=== PATIENT | male | born 1950 | race Caucasian/White ===

== ENCOUNTER → 2016-07-31 | Outpatient (REF) | payer MEDICARE ==
[~2016-07-31] MED LIST: ATEN25TA; PRIL20CA; XANA0.5T; ZOCO40TA; ZOLO100T
[2016-07-31 18:47] LABS: BASO % 0.5 % (0.0-1.0); EOS # 0.2 K/mm3 (0.0-0.50); EOS % 2.6 % (0.0-3.0); LARGE UNSTAINED CELL # 0.2 K/mm3 (0.0-0.4); LARGE UNSTAINED CELL % 1.9 % (0.0-4.0); LYMPH # 2.2 K/mm3 (1.5-4.5); LYMPH % 27.3 % (24.0-44.0); MEAN CORPUSCULAR HEMOGLOBIN 30.2 pg (27.0-33.0); MEAN CORPUSCULAR HGB CONC 32.4 g/dl (32.0-36.5); MEAN CORPUSCULAR VOLUME 93.1 fl (80.0-96.0); MONO # 0.5 K/mm3 (0.0-0.8); MONO % 6.3 % (0.0-5.0); NEUTROPHILS % 61.4 % (36.0-66.0); PLATELET COUNT, AUTOMATED 230 k/mm3 (150-450); RED CELL DISTRIBUTION WIDTH 12.8 % (11.5-14.5); WHITE BLOOD COUNT 8.2 K/mm3 (4.0-10.0)
[2016-07-31 20:31] LABS: ALBUMIN 3.4 GM/DL (3.2-5.2); ALBUMIN/GLOBULIN RATIO 0.94 (1.00-1.93); ALKALINE PHOSPHATASE 128 U/L (45-117); ALT/SGPT 25 U/L (12-78); ANION GAP 7 MEQ/L (8-16); AST/SGOT 21 U/L (15-37); BILIRUBIN,TOTAL 0.4 MG/DL (0.2-1.0); BLOOD UREA NITROGEN 9 MG/DL (7-18); CALCIUM LEVEL 8.5 MG/DL (8.8-10.2); CARBON DIOXIDE LEVEL 30 MEQ/L (21-32); CHLORIDE LEVEL 104 MEQ/L (98-107); CHOLESTEROL LEVEL 223 MG/DL (<200); CREATININE FOR GFR 0.99 MG/DL (0.70-1.30); GLOMERULAR FILTRATION RATE > 60.0 (>49); GLUCOSE, FASTING 109 MG/DL (80-110); POTASSIUM SERUM 4.8 MEQ/L (3.5-5.1); SODIUM LEVEL 141 MEQ/L (136-145); TRIGLYCERIDES LEVEL 196 MG/DL (<150)
== END ==
LOC: M SFHCCAPE 07:08
PROVIDERS: ATTEND Physician Assistant
DX: E78.2 Mixed hyperlipidemia (principal); I10 Essential (primary) hypertension; Z12.5 Encounter for screening for malignant neoplasm of prostate; Z79.82 Long term (current) use of aspirin; Z79.899 Other long term (current) drug therapy
CPT/HCPCS: 36415; 80053; 80061; 83036; 84443; 85025; G0103

== ENCOUNTER → 2016-08-09 | Outpatient (CLI) | payer MEDICARE ==
--- NOTE | 2016-08-09 10:26 | REP ---
HISTORY: Elevated liver function studies. The liver shows some enlargement and decreased echotexture consistent with fatty infiltration. The gallbladder is unremarkable. The gallbladder wall thickness is 1.0 mm, normal and the common bile duct measures 2.7 mm, normal. The pancreas is unremarkable. The spleen length is 12.5 cm which is within normal limits. The right kidney measures 10.9 x 5.5 x 5.9 cm without evidence of hydronephrosis. There is a cyst in the left kidney measuring 3.9 x 2.7 x 2.2 cm. This kidney measures 11.4 x 5.2 x 5.3 cm. The kidneys have normal echotexture. The aorta shows some plaque formation. IMPRESSION: Fatty infiltration of the liver. Left renal cyst measuring up to 3.9 cm. The remaining study is normal. Unreviewed
== END ==
LOC: M RAD 08:15
PROVIDERS: ATTEND Physician Assistant
DX: R74.8 Abnormal levels of other serum enzymes (principal)

== ENCOUNTER → 2016-08-21 | Outpatient (CLI) | payer MEDICARE ==
[~2016-08-21] MED LIST changes: +AMLO10TA2 PO; +ASPI81TA85 PO; +ATEN25TA PO; +CYCL5TA PO; +IRBE75TA5 PO; +LIPI10TA PO; +MOTR200T44 PO; +PRIL20CA9 PO; +TRAM1CAP15 PO; +XANA1TAB2 PO; +ZOLO100T PO
--- NOTE | 2016-08-21 11:40 | REP ---
TRANSRECTAL PROSTATE ULTRASOUND WITH ULTRASOUND GUIDANCE FOR PROSTATE BIOPSY: Real-time sonographic evaluation of the prostate performed utilizing transrectal probe. The size of the gland is 4.4 x 3.0 x 4.4 cm. Volume is 29.8 mL. Hypoechoic nodule on the right measures 13 x 12 mm and other measures 6 x 5 mm. Scattered echogenic calcifications are seen. Seminal vesicles are symmetrical. Ultrasound guidance was provided by Dr. Muse who performed ultrasound guided biopsy of the prostate. Signed by Wing Long MD 08/21/2016 08:07 P
== END | disposition home or self-care (01) ==
LOC: M SMT PRO 08:50
PROVIDERS: ATTEND Urology
DX: C61 Malignant neoplasm of prostate (principal)
CPT/HCPCS: 55700; 76872; 76942; G0416

== ENCOUNTER → 2016-08-29 | Outpatient (CLI) | payer MEDICARE ==
[2016-08-29 15:46] LABS: MEAN CORPUSCULAR HEMOGLOBIN 31.1 pg (27.0-33.0); MEAN CORPUSCULAR HGB CONC 33.6 g/dl (32.0-36.5); MEAN CORPUSCULAR VOLUME 92.8 fl (80.0-96.0); RED CELL DISTRIBUTION WIDTH 12.6 % (11.5-14.5); WHITE BLOOD COUNT 8.3 K/mm3 (4.0-10.0)
[2016-08-29 15:51] LABS: INR 1.12
[2016-08-29 16:24] LABS: ALBUMIN 2.8 GM/DL (3.2-5.2); ALBUMIN/GLOBULIN RATIO 0.72 (1.00-1.93); ALKALINE PHOSPHATASE 87 U/L (45-117); ALT/SGPT 20 U/L (12-78); ANION GAP 6 MEQ/L (8-16); AST/SGOT 24 U/L (15-37); BILIRUBIN,TOTAL 0.5 MG/DL (0.2-1.0); BLOOD UREA NITROGEN 12 MG/DL (7-18); CALCIUM LEVEL 8.4 MG/DL (8.8-10.2); CARBON DIOXIDE LEVEL 32 MEQ/L (21-32); CHLORIDE LEVEL 102 MEQ/L (98-107); CREATININE FOR GFR 0.93 MG/DL (0.70-1.30); GLOMERULAR FILTRATION RATE > 60.0 (>49); GLUCOSE, FASTING 119 MG/DL (80-110); POTASSIUM SERUM 4.6 MEQ/L (3.5-5.1); SODIUM LEVEL 140 MEQ/L (136-145); TOTAL PROTEIN 6.7 GM/DL (6.4-8.2)
--- NOTE | 2016-08-29 18:25 | REP ---
Chest x-ray: Two views: History: Prostate malignancy. Comparison study: 04/15/2014. Findings: The lungs are symmetrically aerated and free of infiltrate. Pleural angles are sharp. The aorta is calcific and a little tortuous as before. Heart is not enlarged. There are degenerative changes in the thoracic spine. No significant bony abnormality is seen. Impression: No active disease. Signed by Raghu Friedman MD 08/30/2016 05:18 P
--- NOTE | 2016-08-29 22:46 | ECGEPIP ---
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
== END ==
LOC: M LAB 15:08
PROVIDERS: ATTEND Urology
DX: Z01.818 Encounter for other preprocedural examination (principal); C61 Malignant neoplasm of prostate; Z79.01 Long term (current) use of anticoagulants
CPT/HCPCS: 36415; 71020; 80053; 81001; 85027; 85610; 85730; 93005; G0463

== ENCOUNTER → 2016-08-30 | Outpatient (REF) | payer MEDICARE | LOC: M SMT 15:08 | PROVIDERS: ATTEND Urology | DX: N39.0 Urinary tract infection, site not specified (principal) ==

== ENCOUNTER → 2016-10-10 | Outpatient (REF) | payer MEDICARE ==
[~2016-10-10] MED LIST changes: +CIPR500T89 PO; +COLA100C3 PO; +ELIQ5TAB PO; +OXYC1TAB23 PO; +SM 88TAB PO
[2016-10-10 17:53] LABS: INR 1.13
[2016-10-10 18:30] LABS: MEAN CORPUSCULAR HEMOGLOBIN 32.4 pg (27.0-33.0); MEAN CORPUSCULAR HGB CONC 35.2 g/dl (32.0-36.5); MEAN CORPUSCULAR VOLUME 92.1 fl (80.0-96.0); RED CELL DISTRIBUTION WIDTH 13.5 % (11.5-14.5); WHITE BLOOD COUNT 8.4 K/mm3 (4.0-10.0)
[2016-10-10 18:40] LABS: ANION GAP 11 MEQ/L (8-16); BLOOD UREA NITROGEN 12 MG/DL (7-18); CALCIUM LEVEL 8.6 MG/DL (8.8-10.2); CARBON DIOXIDE LEVEL 28 MEQ/L (21-32); CHLORIDE LEVEL 103 MEQ/L (98-107); CREATININE FOR GFR 1.18 MG/DL (0.70-1.30); GLOMERULAR FILTRATION RATE > 60.0 (>49); GLUCOSE, FASTING 103 MG/DL (80-110); POTASSIUM SERUM 3.8 MEQ/L (3.5-5.1); SODIUM LEVEL 142 MEQ/L (136-145)
== END ==
LOC: M LABSMT 07:32
PROVIDERS: ATTEND Urology
DX: Z01.818 Encounter for other preprocedural examination (principal); C61 Malignant neoplasm of prostate; Z79.01 Long term (current) use of anticoagulants; I10 Essential (primary) hypertension; E78.00 Pure hypercholesterolemia, unspecified; K21.9 Gastro-esophageal reflux disease without esophagitis; F41.9 Anxiety disorder, unspecified; F32.9 Major depressive disorder, single episode, unspecified; F43.12 Post-traumatic stress disorder, chronic; N39.0 Urinary tract infection, site not specified; E78.2 Mixed hyperlipidemia; Z79.899 Other long term (current) drug therapy

== ENCOUNTER 2016-10-26 11:25 | Inpatient (IN) | payer MEDICARE, BC ==
[~2016-10-26] VITALS: Ht 180.3 cm; Wt 105.2 kg
[~2016-10-26 11:25] MED LIST changes: -CIPR500T89 PO; -COLA100C3 PO; -OXYC1TAB23 PO; -SM 88TAB PO
[2016-10-26] MEDS ORDERED: LR 1,000 ML IV ONE (11:45)
[2016-10-26] MEDS ORDERED: LIDOCAINE 1% SDV INJ 30 ML VIAL As Ordered ONE (15:25)
[2016-10-26] MEDS ORDERED: BUPIVACAINE HCL 0.25% 30 ML VIAL As Ordered ONE (15:25)
[2016-10-26] MEDS ORDERED: ONDANSETRON 4MG/2ML VIAL (J2405) IV PRN ×2 (15:45→21:30)
[2016-10-26] MEDS ORDERED: MORPHINE 2 MG/ML 1ML SYRINGE IV PRN (15:45)
[2016-10-26] MEDS ORDERED: MIDAZOLAM INJ 2 MG/2 ML VIAL (J2250) As Ordered ONE (16:14)
[2016-10-26] MEDS ORDERED: fentaNYL 250 MCG/5 ML INJECTION (J3010) As Ordered ONE (16:14)
[2016-10-26] MEDS ORDERED: NEOSTIGMINE 1MG/ML 5 ML SYRINGE (J2710) As Ordered ONE (16:15)
[2016-10-26] MEDS ORDERED: GLYCOPYRROLATE INJ 0.2 MG/ML 2 ML VIAL As Ordered ONE (16:15)
[2016-10-26] MEDS ORDERED: PROPOFOL 200 MG/20 ML VIAL As Ordered ONE (16:15)
[2016-10-26] MEDS ORDERED: ROCURONIUM BROMIDE 50 MG/5 ML VIAL As Ordered ONE ×2 (16:15→16:46)
[2016-10-26] MEDS ORDERED: LIDOCAINE 2% INJ 100 MG/5 ML SDV (FOR ANES.) As Ordered ONE (16:15)
[2016-10-26] MEDS ORDERED: PHENYLephrine HCL 500 MCG/5 ML (100MCG/ML) SYRINGE (J2370) As Ordered ONE ×2 (16:15→18:03)
[2016-10-26] MEDS ORDERED: ePHEDrine SULFATE 25 MG/5 ML(5MG/ML) SYRINGE As Ordered ONE (16:15)
[2016-10-26] MEDS ORDERED: METOCLOPRAMIDE INJ 10MG/2ML VIAL (J2765) As Ordered ONE (16:15)
[2016-10-26] MEDS ORDERED: ONDANSETRON 4MG/2ML VIAL (J2405) As Ordered ONE (16:15)
[2016-10-26] MEDS ORDERED: ETOMIDATE INJ 20MG/10ML VIAL As Ordered ONE (16:19)
[2016-10-26] MEDS ORDERED: HYDROmorphone HCL 2 MG/ML 1ML VIAL (J1170) As Ordered ONE (17:00)
[2016-10-26] MEDS ORDERED: DESFLURANE 240 ML INHALANT As Ordered ONE (18:12)
--- NOTE | 2016-10-26 20:50 | ROOPDOC ---
[facility] Report Of Operation Report of Operation DATE OF PROCEDURE: 10/26/2016 PREPROCEDURE DIAGNOSIS: Prostate cancer. POSTPROCEDURE DIAGNOSIS: Prostate cancer. PROCEDURE: Robotic-assisted laparoscopic radical prostatectomy. SURGEON: Melita Arroyo MD PLAYER MANAGER: Lakshmi Yarbrough NP ANESTHESIA: General. OPERATIVE INDICATIONS: This is a 66-year-old male who was diagnosed with clinical stage T1c [place] 3+3 prostate cancer. After a discussion of the different options for treatment, he elected to undergo the above listed procedure. DESCRIPTION OF PROCEDURE: The patient was brought to the operating room where general anesthesia was induced. Prophylactic antibiotics were infused. He was then placed in the dorsal lithotomy position, and prepped and draped in the usual sterile fashion. Next, a Osborn catheter was inserted into the bladder, and the balloon was filled with 10 mL of sterile water. We then made a midline incision above the umbilicus for 12 mm port. A Veress needle was utilized to achieve pneumoperitoneum. Next, a 12 mm port was inserted through the incision and subsequently the camera was inserted. There were no injuries from the Veress needle or initial trocar placement. The remaining ports were placed in the usual fashion under direct vision in a W configuration. There were three 8 mm robotic ports, as well as another 12 mm assistant inventory manager port. Once all the ports were placed, the robot was docked. After the robot was docked, we then proceeded to release any adhesions to the sigmoid colon and the abdominal wall. Once that was done, the bladder was dropped and the fat overlying the prostate was cleared using electrocautery. The superficial dorsal vein was controlled with electrocautery. The endopelvic fascia was opened on both sides and the dorsal venous complex was cleared. Next, a #0 Vicryl [id number] stitch was placed around the dorsal venous complex. Once that was done, the bladder was opened. We then began dissecting the bladder neck away from the prostate. I continued to dissect the bladder away from the prostate and then the prostate was lifted up. Both vasa differentia were identified in the midline. They were both carefully dissected and then ligated with Weck clips and then transected. Both seminal vesicles were then also dissected until the entire seminal vesicle on each side was lifted up. At this point, bilateral prostatic pedicles were carefully ligated using a Harmonic scalpel. Of note, I did not perform a nerve sparing procedure for this patient as he indicated preop that preserving erections was not a priority for him. Bilateral pedicles were carried towards the apex. After taking care of the pedicles and mobilizing the rectum off the prostate below, the prostate was only connected by the urethra. At this point, the dorsal vein was transected with electrocautery. The urethra was then opened and the catheter was withdrawn and the posterior urethra was transected, thus freeing the prostate. At this point, we checked for hemostasis and it did appear very good. Once hemostasis was confirmed, I then moved on to the vesicourethral anastomosis. This was performed with a Quill stitch in a running fashion. Once this was done, the final #20-Yoruba Osborn catheter was placed. Once the final Osborn was placed, the balloon was filled with 15 mL of sterile water. Upon completion of the vesicourethral anastomosis, it was tested by filling the bladder with 120 mL of sterile water. There did appear to be a small leak in the posterior aspect of the vesicourethral anastomosis. Given the location of the leak, it was not possible to access it and close it. At this point, the prostate and seminal vesicles were placed in an Endo Catch bag for future retrieval. The robot was then undocked. A David fascial closure device was utilized to place a #0 Vicryl suture through the fascia of the 12 mm assistant inventory manager port. At this point, a Surjit- Warren (ALBERTO) drain was brought in through the left robotic port skin site and the drain was positioned anterior to the bladder. The drain was secured to the skin with #3-0 Ethilon suture. Next, all the remaining ports were removed and there did not appear to be any bleeding from any of the port sites. The prostate was then extracted from the 12 mm camera port site after the skin and fascia were extended. The fascia in this area was then closed with a running #0 Vicryl stitch. The previously placed #0 Vicryl free ties through the assistant inventory manager port were then tied down and all incisions were irrigated. Lastly, all of the incisions were closed with running subcuticular #4-0 Monocryl sutures. Local anesthesia was applied. Dermabond was then applied to the incisions. This marked the conclusion of the procedure. The patient was then taken out of the dorsal lithotomy position, awakened from anesthesia and transported to the recovery room in stable condition. ESTIMATED BLOOD LOSS: 75 mL. COMPLICATIONS: None. SPECIMENS: Prostate. PLAN: The patient will be admitted to the hospital postoperatively, and he will likely be discharged home within the next 1-2 days. His catheter will be kept in place for at least 10 days and depending on ALBERTO drain output, he might need to have a cystogram prior to removal of the catheter. MELITA ARROYO MD October 26, 2016 20:50
[2016-10-26 21:00] LABS: MEAN CORPUSCULAR HEMOGLOBIN 30.9 pg (27.0-33.0); MEAN CORPUSCULAR HGB CONC 33.8 g/dl (32.0-36.5); MEAN CORPUSCULAR VOLUME 91.3 fl (80.0-96.0); RED CELL DISTRIBUTION WIDTH 14.1 % (11.5-14.5); WHITE BLOOD COUNT 9.6 K/mm3 (4.0-10.0)
[2016-10-26 21:21] LABS: ANION GAP 5 MEQ/L (8-16); BLOOD UREA NITROGEN 15 MG/DL (7-18); CARBON DIOXIDE LEVEL 29 MEQ/L (21-32); CHLORIDE LEVEL 107 MEQ/L (98-107); CREATININE FOR GFR 1.18 MG/DL (0.70-1.30); GLOMERULAR FILTRATION RATE > 60.0 (>49); GLUCOSE, FASTING 121 MG/DL (80-110); POTASSIUM SERUM 4.4 MEQ/L (3.5-5.1); SODIUM LEVEL 141 MEQ/L (136-145)
[2016-10-26] MEDS ORDERED: LR 1,000 ML IV SCH (21:30)
[2016-10-26] MEDS: PERCOCET 5MG/325MG TAB PO PRN (22:10)
[2016-10-26] MEDS: fentaNYL 100 MCG/2 ML INJECTION (J3010) IV PRN ×2 (22:11→22:24)
[2016-10-26 22:45] VITALS: BP 95/58
[2016-10-26] MEDS: ceFAZolin SOD 1 GM in D5W MINI-BAG PLUS 50 ML IV SCH (23:14)
[2016-10-26] MEDS: HEPARIN SOD (PORCINE) 5000 UNITS/ML VIAL SC SCH (23:14)
[2016-10-26 23:15] VITALS: BP 95/63
[2016-10-26] MEDS: DOCUSATE SODIUM 100 MG CAP PO SCH (23:16)
[2016-10-26] MEDS: NS 1,000 ML IV SCH ×2 (23:17→23:31)
[2016-10-27] VITALS (7 sets, daily range): BP systolic 94–124; BP diastolic 60–76
[2016-10-27] MEDS: PERCOCET 5MG/325MG TAB PO PRN ×4 (03:27→20:43)
[2016-10-27] MEDS: HEPARIN SOD (PORCINE) 5000 UNITS/ML VIAL SC SCH ×3 (05:36→23:11)
[2016-10-27 06:20] LABS: MEAN CORPUSCULAR HEMOGLOBIN 32.3 pg (27.0-33.0); MEAN CORPUSCULAR HGB CONC 34.8 g/dl (32.0-36.5); MEAN CORPUSCULAR VOLUME 92.9 fl (80.0-96.0); WHITE BLOOD COUNT 10.1 K/mm3 (4.0-10.0)
[2016-10-27 06:33] LABS: ANION GAP 6 MEQ/L (8-16); BLOOD UREA NITROGEN 17 MG/DL (7-18); CALCIUM LEVEL 7.9 MG/DL (8.8-10.2); CARBON DIOXIDE LEVEL 29 MEQ/L (21-32); CHLORIDE LEVEL 104 MEQ/L (98-107); CREATININE FOR GFR 1.05 MG/DL (0.70-1.30); GLOMERULAR FILTRATION RATE > 60.0 (>49); GLUCOSE, FASTING 110 MG/DL (80-110); POTASSIUM SERUM 4.6 MEQ/L (3.5-5.1); SODIUM LEVEL 139 MEQ/L (136-145)
[2016-10-27] MEDS: ATENOLOL 25 MG TAB PO SCH (08:25)
[2016-10-27] MEDS: SERTRALINE 100 MG TAB PO SCH (08:25)
[2016-10-27] MEDS: NS 1,000 ML IV SCH (08:25)
[2016-10-27] MEDS: ceFAZolin SOD 1 GM in D5W MINI-BAG PLUS 50 ML IV SCH (08:25)
[2016-10-27] MEDS: ATORVASTATIN 20 MG TAB PO SCH (08:25)
[2016-10-27] MEDS: amLODIPine 10 MG TAB PO SCH (08:26)
[2016-10-27] MEDS: DOCUSATE SODIUM 100 MG CAP PO SCH ×2 (08:26→20:42)
[2016-10-27] MEDS: IRBESARTAN 75MG TABLET PO SCH (08:27)
[2016-10-27] MEDS: OMEPRAZOLE 20 MG CAP PO SCH (08:27)
--- NOTE | 2016-10-27 10:50 | IPNPDOC ---
Assessment/Plan Date Seen The patient was seen on 10/27/16. Patient Summary 66 y/o M POD1 s/p robotic-assisted laparoscopic radical prostatectomy. He is doing well. Pain is well-controlled. Labs this morning look good. UOP has been good w/ minimal drain output. Plan/VTE VTE Prophylaxis Ordered?: Yes VTE Exclusion Mechanical Proph: N/A:VTE Prophy Ordered VTE Exclusion Pharmacological: N/A:VTE Prophy Ordered Plan/Urinary Catheter Urinary Catheter: Other Catheter: (catheter will need to stay in for 10 days given the vesicourethral anastomosis performed) Plan - d/c IVF - percocet prn pain w/ morphine for breakthrough - strict I/Os - SCDs, SQH - ambulate - incentive spirometry - advance diet as tolerated - plan discharge home either later today or tomorrow w/ catheter and ALBERTO drain in place Subjective Review oF Systems Chief Complaint The patient is a 66-year-old male admitted with a reason for visit of Prostate Cancer. Events since Last Encounter No acute events o/n. Good pain control. No n/v. Ambulating well. No flatus yet. No f/c/ns. Objective Physical Examination General Exam: Alert, Cooperative, No Acute Distress ABDOMEN EXAM: Soft, Hepatospenomegaly, Other (incisions clean/dry/intact; ALBERTO drain w/ no fluid in it), No: Tenderness Skin Exam: Nl turgor and temperature Neuro Exam: Normal Speech Psych Exam: Mental status NL, Mood NL Other physical findings catheter draining light pink urine Vital Signs/I&O Vital Signs Date Time Temp Pulse Resp B/P (MAP) Pulse Ox O2 Delivery O2 Flow Rate FiO2 10/27/16 08:27 123/76 10/27/16 08:26 96 10/27/16 08:26 18 10/27/16 06:00 98.3 95 Nasal Cannula 4.0 I&O- Last 24 Hours up to 6 AM 10/27/16 06:00 Intake Total 4000 ml Output Total 600 ml Balance 3400 ml Laboratory Data Labs 24H Laboratory Tests 2 10/26/16 20:52: Anion Gap 5L, Glomerular Filtration Rate > 60.0, Blood Urea Nitrogen 15, Creatinine 1.18, Sodium Level 141, Potassium Level 4.4, Chloride Level 107, Carbon Dioxide Level 29, Calcium Level 8.0L 10/27/16 06:04: Anion Gap 6L, Glomerular Filtration Rate > 60.0, Blood Urea Nitrogen 17, Creatinine 1.05, Sodium Level 139, Potassium Level 4.6, Chloride Level 104, Carbon Dioxide Level 29, Calcium Level 7.9L CBC/BMP Laboratory Tests 10/26/16 20:52 Red Blood Count 3.99 L, Mean Corpuscular Volume 91.3, Mean Corpuscular Hemoglobin 30.9, Mean Corpuscular Hemoglobin Concent 33.8, Red Cell Distribution Width 14.1, Calcium Level 8.0 L 10/27/16 06:04 Red Blood Count 3.80 L, Mean Corpuscular Volume 92.9, Mean Corpuscular Hemoglobin 32.3, Mean Corpuscular Hemoglobin Concent 34.8, Red Cell Distribution Width 14.0, Calcium Level 7.9 L MELITA ARROYO MD October 27, 2016 10:50
[2016-10-27] MEDS ORDERED: MORPHINE 2 MG/ML 1ML SYRINGE IV PRN (11:00)
[2016-10-27] MEDS ORDERED: PERCOCET 5MG/325MG TAB PO PRN (11:00)
[2016-10-27] MEDS: ASPIRIN 81 MG ENTERIC TAB PO SCH (12:00)
[2016-10-27] MEDS ORDERED: OXYC1TAB23 PO (15:13)
[2016-10-27] MEDS ORDERED: SM 88TAB PO (15:13)
[2016-10-27] MEDS ORDERED: PERCOCET 5MG/325MG TAB PO SCH (22:20)
[2016-10-28] MEDS: PERCOCET 5MG/325MG TAB PO PRN ×2 (04:08→09:17)
[2016-10-28 06:00] VITALS: BP 131/82
[2016-10-28 06:27] LABS: MEAN CORPUSCULAR HEMOGLOBIN 32.1 pg (27.0-33.0); MEAN CORPUSCULAR HGB CONC 34.3 g/dl (32.0-36.5); MEAN CORPUSCULAR VOLUME 93.7 fl (80.0-96.0); WHITE BLOOD COUNT 9.1 K/mm3 (4.0-10.0)
[2016-10-28 06:36] LABS: ANION GAP 5 MEQ/L (8-16); BLOOD UREA NITROGEN 15 MG/DL (7-18); CALCIUM LEVEL 8.3 MG/DL (8.8-10.2); CARBON DIOXIDE LEVEL 30 MEQ/L (21-32); CHLORIDE LEVEL 103 MEQ/L (98-107); GLOMERULAR FILTRATION RATE > 60.0 (>49); GLUCOSE, FASTING 117 MG/DL (80-110); POTASSIUM SERUM 3.9 MEQ/L (3.5-5.1); SODIUM LEVEL 138 MEQ/L (136-145)
[2016-10-28] MEDS: HEPARIN SOD (PORCINE) 5000 UNITS/ML VIAL SC SCH ×3 (06:39→20:53)
[2016-10-28] MEDS: ATORVASTATIN 20 MG TAB PO SCH (08:50)
[2016-10-28] MEDS: SERTRALINE 100 MG TAB PO SCH (08:50)
[2016-10-28] MEDS: amLODIPine 10 MG TAB PO SCH (08:50)
[2016-10-28] MEDS: IRBESARTAN 75MG TABLET PO SCH (08:50)
[2016-10-28] MEDS: ATENOLOL 25 MG TAB PO SCH (08:51)
[2016-10-28] MEDS: ASPIRIN 81 MG ENTERIC TAB PO SCH (08:51)
[2016-10-28] MEDS: DOCUSATE SODIUM 100 MG CAP PO SCH ×2 (08:51→20:53)
[2016-10-28] MEDS: OMEPRAZOLE 20 MG CAP PO SCH (08:51)
[2016-10-28] MEDS ORDERED: METOCLOPRAMIDE 10 MG TAB PO ONE (09:15)
--- NOTE | 2016-10-28 11:58 | IPNPDOC ---
Assessment/Plan Date Seen The patient was seen on 10/28/16. Plan/VTE VTE Prophylaxis Ordered?: Yes VTE Exclusion Mechanical Proph: N/A:VTE Prophy Ordered VTE Exclusion Pharmacological: N/A:VTE Prophy Ordered Plan/Urinary Catheter Urinary Catheter: Other Catheter: (catheter will need to stay in for 10 days given the vesicourethral anastomosis performed) Subjective Review oF Systems Chief Complaint The patient is a 66-year-old male admitted with a reason for visit of Prostate Cancer, s/p RALP (10/26/16). Poor po. No flatus/bm. Ambulate. No nausea/vomit. Uncomfortable. 92, 18, 131/82, 98.1f. Abdo: Distended, firm. No bs. Wound clean. Osborn 400cc/4hr. ALBERTO drops/4hr. (10/28/16) Hg 12.3, wbc 9.1, Cr 1.1. A: Above; ileus? P: Ambulate. Reglan. No narcotics. CT w/o and w/ IV abdo/pelvis w/ po. +/- General Surgery/GI consultation. Objective Physical Examination General Exam: Alert, Cooperative, No Acute Distress ABDOMEN EXAM: Soft, Hepatospenomegaly, Other (incisions clean/dry/intact; ALBERTO drain w/ no fluid in it), No: Tenderness Skin Exam: Nl turgor and temperature Neuro Exam: Normal Speech Psych Exam: Mental status NL, Mood NL Vital Signs/I&O Vital Signs Date Time Temp Pulse Resp B/P (MAP) Pulse Ox O2 Delivery O2 Flow Rate FiO2 10/28/16 09:47 16 10/28/16 08:51 82 131/82 10/28/16 06:00 98.1 94 Room Air 10/27/16 06:00 4.0 I&O- Last 24 Hours up to 6 AM 10/28/16 05:59 Intake Total 5050 ml Output Total 1765 ml Balance 3285 ml Laboratory Data Labs 24H Laboratory Tests 2 10/28/16 06:07: Anion Gap 5L, Glomerular Filtration Rate > 60.0, Blood Urea Nitrogen 15, Creatinine 1.10, Sodium Level 138, Potassium Level 3.9, Chloride Level 103, Carbon Dioxide Level 30, Calcium Level 8.3L CBC/BMP Laboratory Tests 10/28/16 06:07 Red Blood Count 3.82 L, Mean Corpuscular Volume 93.7, Mean Corpuscular Hemoglobin 32.1, Mean Corpuscular Hemoglobin Concent 34.3, Red Cell Distribution Width 14.0, Calcium Level 8.3 L YOMI SARABIA MD October 28, 2016 11:58
[2016-10-28] MEDS ORDERED: GASTROGRAFIN SOLUTION 30ML PO ONE (12:30)
[2016-10-28] MEDS ORDERED: GASTROGRAFIN SOLUTION 30ML (Q9963) PO ONE (13:00)
[2016-10-28] MEDS ORDERED: ISOVUE-370 76% 100ML VIAL (Q9967) As Ordered ONE (13:54)
[2016-10-28 14:00] VITALS: BP 178/94
[2016-10-28] MEDS: ALVIMOPAN 12 MG CAPSULE (ENTEREG) PO SCH (20:53)
[2016-10-28] MEDS: ACETAMINOPHEN TAB 650MG DOSE (2X325MG) PO PRN (20:53)
[2016-10-28 22:00] VITALS: BP 152/84
[2016-10-29] MEDS: HEPARIN SOD (PORCINE) 5000 UNITS/ML VIAL SC SCH (05:08)
[2016-10-29] MEDS: ACETAMINOPHEN TAB 650MG DOSE (2X325MG) PO PRN (05:08)
[2016-10-29 06:00] VITALS: BP 169/71
[2016-10-29 06:42] LABS: MEAN CORPUSCULAR HEMOGLOBIN 32.5 pg (27.0-33.0); MEAN CORPUSCULAR HGB CONC 35.3 g/dl (32.0-36.5); RED CELL DISTRIBUTION WIDTH 13.9 % (11.5-14.5); WHITE BLOOD COUNT 10.8 K/mm3 (4.0-10.0)
[2016-10-29 06:57] LABS: ANION GAP 7 MEQ/L (8-16); BLOOD UREA NITROGEN 10 MG/DL (7-18); CALCIUM LEVEL 8.5 MG/DL (8.8-10.2); CARBON DIOXIDE LEVEL 28 MEQ/L (21-32); CHLORIDE LEVEL 101 MEQ/L (98-107); CREATININE FOR GFR 0.94 MG/DL (0.70-1.30); GLOMERULAR FILTRATION RATE > 60.0 (>49); GLUCOSE, FASTING 119 MG/DL (80-110); POTASSIUM SERUM 3.9 MEQ/L (3.5-5.1); SODIUM LEVEL 136 MEQ/L (136-145)
--- NOTE | 2016-10-29 07:40 | REP ---
CT ABDOMEN AND PELVIS WITH CONTRAST: TECHNIQUE: Axial contrast enhanced images from the lung bases to the pubic symphysis using 100 mL Isovue 370 intravenous contrast material with multiplanar reformations. In the visualized lung bases there is mild patchy atelectasis or infiltrate in the right lower lobe. Minimal atelectasis of infiltrate is seen in the left lower lobe. Patient has had recent prostatectomy. A drain is seen in the pelvis. Tiny amount of free air is seen in the pelvis. There is ill-defined edema in the deep soft tissues of the pelvis above the bladder, but no fluid collection is seen. There is a Osborn catheter in the bladder. The liver, spleen, adrenals, and pancreas are unremarkable. There is a cyst in the lower pole of the left kidney. There is no hydronephrosis. There are atherosclerotic calcifications of the abdominal aorta without aneurysm. There is no free fluid. The appendix is normal. There is mild distension of the right colon with air and fecal material. There is no evidence of small bowel obstruction. IMPRESSION: Surgical drain in the pelvis status post prostatectomy. Osborn catheter. Soft tissue edema above the bladder, but no free fluid or fluid collection. No evidence of small bowel obstruction. Mild distension of the right side of the colon with air and fecal material. Mild atelectasis or infiltrate in the right lower lung. Minimal atelectasis or infiltrate left lower lung. Tiny amount of post surgical free air seen in the pelvis. Signed by Wing Long MD 10/29/2016 12:18 P
--- NOTE | 2016-10-29 08:19 | IPNPDOC ---
Assessment/Plan Date Seen The patient was seen on 10/29/16. Patient Summary This is a 66 y/o M POD3 s/p RALP. A CT A/P was performed yesterday given firm abdomen on exam and no flatus at the time. I reviewed the CT and it is consistent w/ postop changes. The patient had an ileus, which has now resolved. He feels well and wants to go home. Plan/VTE VTE Prophylaxis Ordered?: Yes VTE Exclusion Mechanical Proph: N/A:VTE Prophy Ordered VTE Exclusion Pharmacological: N/A:VTE Prophy Ordered Plan/Urinary Catheter Urinary Catheter: Other Catheter: (catheter will need to stay in for 10 days given the vesicourethral anastomosis performed) Plan - discharge home w/ catheter and ALBERTO drain in place - patient understands to try to minimize narcotics, ambulate, and use stool softeners at home - he will f/u in 3 days for pathology results and ALBERTO removal Subjective Review oF Systems Chief Complaint The patient is a 66-year-old male admitted with a reason for visit of Prostate Cancer. Events since Last Encounter No acute events o/n. Notes incisional pain. No n/v. Passing flatus. Had a small bm. No chest pain or SOB. No f/c/ns. Objective Physical Examination General Exam: Alert, Cooperative, No Acute Distress ABDOMEN EXAM: Soft, Other (incisions clean/dry/intact; ALBERTO draining serosanguinous fluid), No: Tenderness Skin Exam: Nl turgor and temperature Neuro Exam: Normal Speech Psych Exam: Mental status NL, Mood NL Other physical findings catheter draining clear urine Vital Signs/I&O Vital Signs Date Time Temp Pulse Resp B/P (MAP) Pulse Ox O2 Delivery O2 Flow Rate FiO2 10/29/16 06:00 98.6 103 18 169/71 (103) 94 Room Air 10/27/16 06:00 4.0 I&O- Last 24 Hours up to 6 AM 10/29/16 06:00 Intake Total 2280 ml Output Total 2000 ml Balance 280 ml Laboratory Data Labs 24H Laboratory Tests 2 10/29/16 06:18: Anion Gap 7L, Glomerular Filtration Rate > 60.0, Blood Urea Nitrogen 10, Creatinine 0.94, Sodium Level 136, Potassium Level 3.9, Chloride Level 101, Carbon Dioxide Level 28, Calcium Level 8.5L CBC/BMP Laboratory Tests 10/29/16 06:18 Red Blood Count 3.76 L, Mean Corpuscular Volume 92.0, Mean Corpuscular Hemoglobin 32.5, Mean Corpuscular Hemoglobin Concent 35.3, Red Cell Distribution Width 13.9, Calcium Level 8.5 L MELITA ARROYO MD October 29, 2016 08:19
[2016-10-29] MEDS: IRBESARTAN 75MG TABLET PO SCH (08:40)
[2016-10-29] MEDS: ALVIMOPAN 12 MG CAPSULE (ENTEREG) PO SCH (08:41)
[2016-10-29] MEDS: OMEPRAZOLE 20 MG CAP PO SCH (08:41)
[2016-10-29] MEDS: DOCUSATE SODIUM 100 MG CAP PO SCH (08:41)
[2016-10-29] MEDS: ATORVASTATIN 20 MG TAB PO SCH (08:41)
[2016-10-29] MEDS: ATENOLOL 25 MG TAB PO SCH (08:41)
[2016-10-29] MEDS: SERTRALINE 100 MG TAB PO SCH (08:41)
[2016-10-29 08:42] VITALS: BP 169/71
[2016-10-29] MEDS: amLODIPine 10 MG TAB PO SCH (08:42)
[2016-10-29] MEDS: ASPIRIN 81 MG ENTERIC TAB PO SCH (08:42)
[2016-10-29] MEDS ORDERED: COLA100C3 PO (08:55)
[2016-10-29] MEDS ORDERED: ASPI81TA85 PO (08:55)
[2016-10-29] MEDS ORDERED: CIPR500T89 PO (09:02)
--- NOTE | 2016-10-29 17:09 | DSES ---
DATE OF ADMISSION: 10/26/2016 DATE OF DISCHARGE: 10/29/2016 ADMISSION DIAGNOSIS: Prostate cancer. DISCHARGE DIAGNOSIS: Prostate cancer. ADMITTING PHYSICIAN: Main Muse MD. DISCHARGE PHYSICIAN: Main Muse MD. PROCEDURE PERFORMED: Robotic assisted laparoscopic radical prostatectomy on 10/26/2016. HISTORY OF PRESENT ILLNESS: 66-year-old male who was admitted to the hospital after undergoing above mentioned procedure on 10/26/2016. HOSPITALIZATION COURSE: The patient was admitted to the hospital on 10/26/2016. His postoperative course was complicated only by a postoperative ileus. On postoperative day two, his abdomen was concerned to be somewhat firm, and therefore a CAT scan of the abdomen and pelvis was performed. It was notable for postoperative changes and mild dilatation of the colon. General surgery was consulted for recommendations and they recommended starting him on Entereg. By postoperative day three, the patient had return of bowel function and was passing gas and also had a small bowel movement. He only had mild incisional pain. He was tolerating a regular diet and was ambulating well. His labs during his hospitalization course were unremarkable. He had excellent urine output. The patient was discharged on postoperative day three with a catheter in and ALBERTO drain in place. The plan is for him to follow up in the clinic in a few days to discuss his pathology results as well as the remove the ALBERTO drain. His catheter will need to stay in for a total of 10 days, and therefore that will be removed next week. BARRY
== END 2016-10-29 10:10 | disposition home or self-care (01) | DRG 707 ==
LOC: M OR 11:25 → EDSTATUS 13:00 → M MS5PR 22:57
PROVIDERS: ADMIT Urology; ATTEND Urology
PROC: 8E0W4CZ Robotic Assisted Procedure of Trunk Region, Percutaneous Endoscopic Approach (ICD-10-PCS; 2016-10-26)
PROC: 0VT04ZZ Resection of Prostate, Percutaneous Endoscopic Approach (ICD-10-PCS; principal; 2016-10-26 13:00)
DX: C61 Malignant neoplasm of prostate (principal); K56.7 Ileus, unspecified; I10 Essential (primary) hypertension; E78.00 Pure hypercholesterolemia, unspecified; F41.9 Anxiety disorder, unspecified; F32.9 Major depressive disorder, single episode, unspecified; K21.9 Gastro-esophageal reflux disease without esophagitis; F17.210 Nicotine dependence, cigarettes, uncomplicated; I48.91 Unspecified atrial fibrillation; Z79.899 Other long term (current) drug therapy; Z79.01 Long term (current) use of anticoagulants; Z82.3 Family history of stroke

== ENCOUNTER → 2016-11-26 | Outpatient (REF) | payer MEDICARE, BC ==
[~2016-11-26] MED LIST changes: +CIPR-249 PO; +COLA100C5 PO; -CYCL5TA PO; +CYCL5TAB PO; +OXYC1TAB23 PO; +SM 88TAB PO
== END ==
LOC: M LABDRWCV 16:44
PROVIDERS: ATTEND Urology
DX: C61 Malignant neoplasm of prostate (principal)

== ENCOUNTER → 2016-11-29 | Outpatient (REF) | payer MEDICARE ==
[~2016-11-29] MED LIST changes: -CIPR-249 PO; +CIPR500T89 PO; +COLA100C3 PO; -COLA100C5 PO; +CYCL5TA PO; -CYCL5TAB PO
== END ==
LOC: M SMT 13:18
PROVIDERS: ATTEND Urology
DX: R30.0 Dysuria (principal)

== ENCOUNTER → 2016-12-20 | Outpatient (REF) | payer MEDICARE, BC ==
[~2016-12-20] MED LIST changes: +CIPR-249 PO; -CIPR500T89 PO; -COLA100C3 PO; +COLA100C5 PO; -CYCL5TA PO; +CYCL5TAB PO
== END ==
LOC: M LABSMT 11:20
PROVIDERS: ATTEND Urology
DX: N39.0 Urinary tract infection, site not specified (principal)

== ENCOUNTER → 2017-01-10 | Outpatient (REF) | payer MEDICARE, BC | LOC: M SMT 13:12 | PROVIDERS: ATTEND Urology | DX: N39.0 Urinary tract infection, site not specified (principal) ==

== ENCOUNTER → 2017-01-15 | Outpatient (REF) | payer MEDICARE, BC | LOC: M LAB REF 16:40 | PROVIDERS: ATTEND Urology | DX: E29.1 Testicular hypofunction (principal) ==

== ENCOUNTER → 2017-01-15 | Outpatient (REF) | payer MEDICARE, BC | LOC: M LABSMT 07:29 | PROVIDERS: ATTEND Urology | DX: E29.1 Testicular hypofunction (principal); Z53.8 Procedure and treatment not carried out for other reasons ==

== ENCOUNTER → 2017-03-07 | Outpatient (REF) | payer MEDICARE, BC | LOC: M SFHCCAPE 07:25 | PROVIDERS: ATTEND Urology | DX: C61 Malignant neoplasm of prostate (principal) ==

== ENCOUNTER 2017-06-21 08:29 | Day surgery (SDC) | payer MEDICARE ==
[2017-06-21] MEDS ORDERED: ceFAZolin 2 GM/D5W 50 ML IV BAG (J0690 PER 500MG) As Ordered (09:00)
[2017-06-21] MEDS ORDERED: MIDAZOLAM INJ 2 MG/2 ML VIAL (J2250) As Ordered (09:29)
[2017-06-21] MEDS ORDERED: LR 1,000 ML IV (09:30)
[2017-06-21] MEDS ORDERED: fentaNYL 100 MCG/2 ML INJECTION (J3010) As Ordered (09:30)
[2017-06-21] MEDS ORDERED: LIDOCAINE 1% SDV 5 ML VIAL SQ (09:30)
[2017-06-21] MEDS ORDERED: LIDOCAINE 2% INJ 100 MG/5 ML SDV (FOR ANES.) As Ordered (09:31)
[2017-06-21] MEDS ORDERED: PROPOFOL 200 MG/20 ML VIAL As Ordered (09:31)
[2017-06-21] MEDS: LIDOCAINE W/EPINEPHRINE 1% 20ML VIAL As Ordered (10:15)
== END 2017-06-21 11:05 | disposition home or self-care (01) ==
LOC: M SDC 08:29
DX: C44.519 Basal cell carcinoma of skin of other part of trunk (principal); I10 Essential (primary) hypertension; I48.91 Unspecified atrial fibrillation; R01.1 Cardiac murmur, unspecified; M54.9 Dorsalgia, unspecified; E78.00 Pure hypercholesterolemia, unspecified; K21.9 Gastro-esophageal reflux disease without esophagitis; F41.9 Anxiety disorder, unspecified; Z85.46 Personal history of malignant neoplasm of prostate; F10.21 Alcohol dependence, in remission; F17.210 Nicotine dependence, cigarettes, uncomplicated; Z79.899 Other long term (current) drug therapy; Z79.82 Long term (current) use of aspirin
CPT/HCPCS: 11606

== ENCOUNTER → 2017-07-18 | Outpatient (REF) | payer MEDICARE, BC ==
[2017-07-18 17:47] LABS: PROSTATIC SPECIFIC AG MONITOR 0.07 NG/ML (< 4.0)
== END ==
LOC: M SFHCCAPE 07:37
DX: C61 Malignant neoplasm of prostate (principal)
CPT/HCPCS: 84153

== ENCOUNTER → 2017-10-23 | Outpatient (REF) | payer MEDICARE ==
[2017-10-23 17:05] LABS: PROSTATIC SPECIFIC AG MONITOR < 0.01 NG/ML (< 4.0)
== END ==
LOC: M SFHCCAPE 08:27
DX: C61 Malignant neoplasm of prostate (principal)
CPT/HCPCS: 84153

== ENCOUNTER → 2018-01-28 | Outpatient (REF) | payer MEDICARE ==
[2018-01-28 18:11] LABS: PROSTATIC SPECIFIC AG MONITOR 0.02 NG/ML (< 4.0)
== END ==
LOC: M SFHCCAPE 08:46
DX: C61 Malignant neoplasm of prostate (principal)
CPT/HCPCS: 84153

== ENCOUNTER → 2018-04-30 | Outpatient (REF) | payer MEDICARE ==
[2018-04-30 16:51] LABS: PROSTATIC SPECIFIC AG MONITOR < 0.0 NG/ML (< 4.0)
== END ==
LOC: M SFHCCAPE 07:41
DX: C61 Malignant neoplasm of prostate (principal)
CPT/HCPCS: 84153

== ENCOUNTER → 2018-05-01 | Outpatient (CLI) | payer MEDICARE | LOC: M WUC 14:28 | DX: M54.42 Lumbago with sciatica, left side (principal); M51.36 Other intervertebral disc degeneration, lumbar region; M51.37 Other intervertebral disc degeneration, lumbosacral region; M25.752 Osteophyte, left hip | CPT/HCPCS: 72110; G0463 ==

== ENCOUNTER → 2018-08-20 | Outpatient (CLI) | payer MEDICARE ==
[~2018-08-20] MED LIST changes: -AMLO10TA2 PO; +AMLO10TA5 PO; +DITR5TAB PO; +MULTLIQ7 PO
--- NOTE | 2018-08-20 16:30 | REP ---
PA and lateral chest: Comparison is 2013. The lung santamaria are clear. The cardiac size is normal. The katalina, mediastinum, skeletal structures are. There is no interval change. Impression: Negative PA and lateral chest. Electronically Signed by Wing Randle MD 08/20/2018 04:22 P
== END ==
LOC: M WUC 15:49
PROVIDERS: ATTEND Physician Assistant
DX: R05 Cough (principal)

== ENCOUNTER → 2018-10-09 | Outpatient (REF) | payer MEDICARE ==
[2018-10-09 19:24] LABS: BASO % 0.3 % (0.0-1.0); EOS # 0.2 10^3/uL (0.0-0.50); HEMATOCRIT 41.6 % (42.0-52.0); HEMOGLOBIN 13.7 g/dl (13.5-17.5); LYMPH # 1.7 10^3/uL (1.5-4.5); LYMPH % 26.4 % (24.0-44.0); MEAN CORPUSCULAR HEMOGLOBIN 31.9 pg (27.0-33.0); MEAN CORPUSCULAR HGB CONC 32.9 g/dl (32.0-36.5); MEAN CORPUSCULAR VOLUME 96.7 fl (80.0-96.0); MONO # 0.5 10^3/uL (0.0-0.8); MONO % 7.3 % (0.0-5.0); NEUTROPHILS # 3.9 10^3/uL (1.8-7.7); NEUTROPHILS % 62.8 % (36.0-66.0); PLATELET COUNT, AUTOMATED 210 10^3/uL (150-450); WHITE BLOOD COUNT 6.3 10^3/uL (4.0-10.0)
[2018-10-09 19:27] LABS: ALBUMIN 3.4 GM/DL (3.2-5.2); ALT/SGPT 30 U/L (12-78); BILIRUBIN,TOTAL 0.7 MG/DL (0.2-1.0); BLOOD UREA NITROGEN 12 MG/DL (7-18); CALCIUM LEVEL 8.5 MG/DL (8.8-10.2); CARBON DIOXIDE LEVEL 28 MEQ/L (21-32); CHLORIDE LEVEL 107 MEQ/L (98-107); CHOLESTEROL LEVEL 167 MG/DL (<200); CHOLESTEROL RISK RATIO 5.387 (<5); CREATININE FOR GFR 1.19 MG/DL (0.70-1.30); GLOMERULAR FILTRATION RATE > 60.0 (>49); GLUCOSE, FASTING 126 MG/DL (70-100); HDL CHOLESTEROL 31 MG/DL (>40); LDL CHOLESTEROL 116.4 MG/DL (<100); NON-HDL-C 136 MG/DL; POTASSIUM SERUM 4.2 MEQ/L (3.5-5.1); SODIUM LEVEL 141 MEQ/L (136-145); TOTAL PROTEIN 6.4 GM/DL (6.4-8.2); TRIGLYCERIDES LEVEL 98 MG/DL (<150)
[2018-10-09 19:39] LABS: HEMOGLOBIN A1c 5.7 %
== END ==
LOC: M SFHCCAPE 07:25
PROVIDERS: ATTEND Physician Assistant
DX: E78.2 Mixed hyperlipidemia (principal)

== ENCOUNTER → 2018-11-12 | Outpatient (REF) | payer MEDICARE | LOC: M SFHCCAPE 07:25 | PROVIDERS: ATTEND Physician Assistant | DX: C61 Malignant neoplasm of prostate (principal) | CPT/HCPCS: 36415; 84153; G0463 ==

== ENCOUNTER → 2018-11-17 | Outpatient (CLI) | payer MEDICARE ==
--- NOTE | 2018-11-17 19:49 | REP ---
REASON: Fever. There are bilateral lower lobe opacities representing a change from 08/20/2018 with bilateral cardiophrenic and costophrenic angle blunting. There is cardiomegaly. The osseous structures are unchanged. IMPRESSION: Bilateral lower lobe opacities with bilateral effusions. Pneumonia and or subsegmental atelectasis. Electronically Signed by Rizwan Chavez DO 11/17/2018 07:51 P
== END ==
LOC: M WUC 18:25
PROVIDERS: ATTEND Physician Assistant
DX: R91.8 Other nonspecific abnormal finding of lung field (principal); R05 Cough; R50.9 Fever, unspecified

== ENCOUNTER → 2018-11-19 | Outpatient (CLI) | payer MEDICARE ==
--- NOTE | 2018-11-19 19:20 | REP ---
CHEST, TWO VIEWS: Two view of the chest are performed and compared to prior study of 11/17/2018. Bibasilar infiltrates and effusions are stable. Heart appears enlarged and unchanged. There is calcification and thoracic aorta. The mediastinal silhouette is unchanged. IMPRESSION: Stable exam. Electronically Signed by Wing Long MD 11/24/2018 01:36 P
== END ==
LOC: M WUC 16:02
PROVIDERS: ATTEND Physician Assistant
DX: R91.8 Other nonspecific abnormal finding of lung field (principal); J40 Bronchitis, not specified as acute or chronic

== ENCOUNTER 2018-12-04 23:11 | Emergency (ER) | payer MEDICARE ==
[2018-12-04 23:13] VITALS: BP 0/0
== END 2018-12-05 01:58 | disposition expired ==
LOC: M ED 23:11
DX: I46.9 Cardiac arrest, cause unspecified (principal); Z79.82 Long term (current) use of aspirin; Z79.899 Other long term (current) drug therapy